=== PATIENT | female | born 1985 | race Caucasian/White ===

== ENCOUNTER → 2019-04-03 11:03 | Outpatient (CLI) | payer OTHER, SELFPAY ==
[2019-04-03 12:28] LABS: Hematocrit 35.4 % (36-46); Hemoglobin 12.4 g/dL (12.0-16.0)
[2019-04-03 14:03] LABS: GTT (PREG) 1 Hour PP 50gm Dose 82 mg/dL (76-139)
== END ==
PROVIDERS: Visit Provider Specialist
DX: Z3A.24 24 weeks gestation of pregnancy (principal); Z34.82 Encounter for supervision of other normal pregnancy, second trimester
CPT/HCPCS: 36415; 82950; 85014; 85018

== ENCOUNTER → 2019-06-21 15:56 | Outpatient (CLI) | payer OTHER, SELFPAY ==
[2019-06-23 13:20] LABS: Strep Grp B PCR NEG for Grp B Strep
== END ==
PROVIDERS: Visit Provider Specialist
DX: Z34.83 Encounter for supervision of other normal pregnancy, third trimester (principal); Z3A.36 36 weeks gestation of pregnancy
CPT/HCPCS: 87653

== ENCOUNTER 2019-07-08 00:03 | Inpatient (IN) | payer OTHER, SELFPAY ==
--- NOTE | 2019-07-08 01:01 | PM.OBHP.1 ---
OB HPI History of Present Condition Chief complaint: Evaluation of Labor Narrative: Savannah Larose is a 34 year old @39+1, presenting from home after SROM for clear fluid at 11:30 PM on 07/07. She reports contractions since that time, increasing in frequency and intensity. She denies VB and reports good movement, with no other complaints. She denies any complications, and reports a history of term CS for failure to progress, followed by failed term TOLAC. She denies any other pregnacy complications or complications in recovery. 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) Migraines (Chronic) Ovarian cyst (Chronic ~2008) with history of section, antepartum (Acute) Surgical History (Updated 04/19/19 @ 22:28 by Maribell Arita) Anesthesia (Resolved) Femoral hernia (Resolved ~2011) H/O section (Resolved ~2011) H/O section (Resolved ~2014) Tumor (Resolved ~2017) Family History (Updated 04/19/19 @ 22:31 by Maribell Arita) Father History of heart disease Hyperlipidemia Hypertension Grandfather History of heart disease Hyperlipidemia Hypertension Grandmother Breast cancer Grandfather History of heart disease Grandmother History of heart disease Family History (Updated 04/19/19 @ 22:31 by Maribell Arita) Father History of heart disease Hyperlipidemia Hypertension Grandfather History of heart disease Hyperlipidemia Hypertension Grandmother Breast cancer Grandfather History of heart disease Grandmother History of heart disease Meds Home Medications and Allergies Home Medications Medication Instructions Recorded Confirmed Type breast pump #1 each 05/18/19 05/18/19 Rx butalbital 50 mg-acetaminophen 325 1 cap PO Q4H PRN #10 cap 05/29/19 Rx mg-caffeine 40 mg-codeine 30 mg cap Allergies Allergy/AdvReac Type Severity Reaction Status Date / Time Sulfa (Sulfonamide Allergy Verified 07/08/19 01:17 Antibiotics) Review of Systems Review of Systems ROS Unobtainable: All systems reviewed & are unremarkable except as noted in HPI and below Constitutional Constitutional: Reports system reviewed and no additional complaints, except as documented Cardiovascular Cardiovascular: Reports system reviewed; no additional complaints, except as documented Respiratory Respiratory: Reports system reviewed and no additional complaints, except as documented Gastrointestinal Gastrointestinal: Reports system reviewed and no additional complaints, except as documented Genitourinary Genitourinary: Reports as per HPI Neurologic Neurologic: Reports system reviewed and no additional complaints, except as documented Exam Vital Signs (past 8 hours): 122/73, 71, 36.2C Objective Labs Labs: CBC pending Assessment and Plan Assessment and Plan Assessment and Plan narrative: This patient presents in early labor with ruptured membranes, at term and with a history of two prior CS. The risks and benefits of repeat section were discussed, including the risks of hemorrhage, hysterectomy, and damage to surrounding organs along with the risk of TOLAC. The patient vocalized understanding and consent was obtained. She will be taken for repeat section. - CBC, T&S pending - For cefazolin, azithryomycin ppx - For vaginal prep as ruptured membranes Time Spent with Patient Total time spent with greater than 50% in coordination of care (as documented) at patient's floor/unit and/or counseling patient:: 15-24 minutes
[2019-07-08 01:08] LABS: Add Manual Diff / Slide Review NO; Basophils Absolute Auto 100 /uL (0-100); Basophils Percent Auto 0.7 % (0-2); Eosinophils Absolute Auto 100 /uL (0-450); Eosinophils Percent Auto 1.4 % (2-4); Hematocrit 35.4 % (36-46); Hemoglobin 12.3 g/dL (12.0-16.0); Lymphocytes Absolute Auto 1600 /uL (1100-4500); Lymphocytes Percent Auto 21.7 % (25-40); Mean Corpuscular HGB Conc 34.6 % (30-36); Mean Corpuscular Hemoglobin 30.6 PG (26-34); Mean Corpuscular Volume 88.2 fL (80-100); Monocytes Absolute Auto 500 /uL (0-900); Monocytes Percent Auto 7.2 % (3-14); Neutrophils Absolute Auto 5200 /uL (1500-7000); Platelet Count 144 X10^3/uL (150-400); Red Blood Cell Count 4.01 X10^6/uL (4.0-5.2); Red Cell Distribution Width 13.4 % (11.6-14.8); White Blood Cell Count 7.6 X10^3/uL (4.5-11.0)
[2019-07-08] MEDS: CEFAZOLIN 2 GM/100 ML FROZ.PIGGY IV (01:32)
--- NOTE | 2019-07-08 01:45 | PM.PREOP ---
Pre-operative Note Interval Note History & Physical reviewed/Exam performed by Physician: Yes Changes to H&P: No
[2019-07-08] MEDS: AZITHROMYCIN 500 MG in DEXTROSE 5% IN WATER 250 ML IV (01:50)
--- NOTE | 2019-07-08 02:14 | SUR.OPER ---
Supine on Padded OR bed, head on pillow, safety belt at thigh, arms secured on padded arm boards at <90 degrees abduction. Bump under right buttock. Legs uncrossed with pillow under knees, gel pad to heels, tape over blanket to lower legs.
--- NOTE | 2019-07-08 02:41 | SUR.OPER ---
VIABLE FEMALE INFANT DELIVERED AT 0214. CORD BLOOD AND PLACENTA TO OB WITH RN.
--- NOTE | 2019-07-08 03:03 | PM.GYNOP.1 ---
Operative Date/Time/Diagnoses Date of procedure: 07/08/19 Time of procedure: 02:00 Pre-op diagnosis: Hx 2x prior CS, ruptured membranes, early labor Post-op diagnosis: same Procedure & Clinicians Procedure: Procedures Operation Date: 07/08/19 02:05 Actual Procedures Side Surgeon Section Not Applicable Belkis Camacho MD Findings: Female infant in cephalic presentation, apgars 9+9. Normal uterus, tubes and ovaries. Minimal scar tissue. Procedure: The patient was taken to the operating room where spinal anesthesia and a enrique catheter were placed. She was prepped and draped in the normal sterile fashion in the dorsal supine position with a leftward tilt. A Pfannenstiel skin incision was made with the scalpel, and the prior incision scar excised. This incision was carried through to the underlying layer of fascia with the bovie. The fascia was incised in the midline and this incision extended laterally with the bovie. Dylan clamps were used to grasp and elevate the superior aspect of this incision, and a scalpel was used to dissect off the underlying rectus muscles. Attention was then turned to the inferior aspect of this incision, which in a similar fashion was grasped with the dylan clamps, elevated, and the underlying rectus muscles dissected off with the scalpel. The muscles were noted to be in the midline, and the peritoneum was entered bluntly with good visualization of the bladder. The bladder blade was placed, and the vesicouterine peritoneum visualized, grasped with a pickups and entered sharply with the metzenbaum scissors. This incision was extended laterally and the bladder flap created digitally. The bladder blade was reinserted. The lower uterine segment was incised in a transverse fashion with the scalpel, and this incision was extended bluntly. The infant was delivered atraumatically from the cephalic presentation, and the cord was clamped and cut. The was handed to awaiting nursery staff, and the placenta was removed manually with a three vessel cord noted. The uterus was cleared of all clots and debris, and 1-0 chromic was used in a running locked fashion to repair the hysterotomy. A second layer of the same suture was used to achieve a double layer closure with good hemostasis achieved. The gutters were cleared of all clots, and the peritoneum closed with 2-0 vicryl in a running fashion. The fascia was closed in a running fashion with 0 vicryl. 3-0 vicryl was used in an interrupted fashion to close the subcutaneous layer, and 4-0 biosyn was used to close the skin in a running fashion. Sponge, lap and instrument counts were correct x2, and the patient tolerated the procedure well. She was taken to PACU in stable condition. Complications: None IVF: 2000ccs UOP: 300ccs EBL: 400ccs Indications: 2x prior CS, ruptured membranes at term Surgeon: Belkis Camacho Vp [employer]: Mariela Thomas Anesthesia Type: Spinal
[2019-07-08 03:05] VITALS: BP 107/71; PULSE 54; RESP 12; TEMP 36.1; O2SAT 99
[2019-07-08 03:10] VITALS: BP 106/70; PULSE 58; RESP 12; O2SAT 98
[2019-07-08 03:15] VITALS: BP 111/61; PULSE 56; RESP 11; O2SAT 98
[2019-07-08 03:20] VITALS: BP 114/66; PULSE 53; RESP 12; TEMP 36.1; O2SAT 99
[2019-07-08] MEDS: LACTATED RINGERS 1,000 ML 100 ML IV (03:30)
[2019-07-08 03:53] VITALS: BP 110/68
[2019-07-08] MEDS: KETOROLAC 30 MG/ML VIAL IV ×3 (08:30→20:35)
[2019-07-08] MEDS: DOCUSATE 250 MG CAPSULE PO (09:30)
[2019-07-08] MEDS: PRENATAL VIT,CALC/IRON/FOLIC 1 TABLET 1 TAB PO (09:30)
--- NOTE | 2019-07-08 10:09 | PM.OBPN.1 ---
Subjective - OB Subjective Patient comments: no complaints, pain well controlled and tolerating diet baby status: doing well and nursing well feeding status: exclusively breast feeding Narrative: Patient reports feeling well this AM with no complaints. Date Patient Seen: 07/08/19 Time Patient Seen: 10:09 Interval history: Patient now PPD#0 s/p 3rd section after presenting at term with ruptured membranes and dayanara. Exam Vital Signs (past 8 hours): - 07/08/19 03:05 07/08/19 03:10 07/08/19 03:15 Temperature 97.0 F L Pulse Rate 54 L 58 L 56 L Respiratory Rate 12 12 11 L Blood Pressure 107/71 106/70 111/61 Pulse Oximetry 99 98 98 07/08/19 03:20 07/08/19 03:53 Temperature 97.0 F L Pulse Rate 53 L Respiratory Rate 12 Blood Pressure 114/66 110/68 Pulse Oximetry 99 Oxygen Delivery Method Room Air Narrative Exam Narrative: Patient well appearing, nursing . Resp Auscultation: clear to auscultation bilaterally Cardio Rate: regular rate Rhythm: regular rhythm GI Inspection: normal to inspection and incision (incision covered by dressing, scant old blood visible. ) Palpation: soft and No tender Skin General: no rashes or lesions noted and No pallor Objective Labs Result Diagrams: 07/08/19 01:00 Labs: Laboratory Results - last 24 hr 07/08/19 07/08/19 01:00 01:00 WBC 7.6 RBC 4.01 Hgb 12.3 Hct 35.4 L MCV 88.2 MCH 30.6 MCHC 34.6 RDW 13.4 Plt Count 144 L Neut % (Auto) 69.0 Lymph % (Auto) 21.7 L [place] % (Auto) 7.2 Eos % (Auto) 1.4 L Baso % (Auto) 0.7 Neut # (Auto) 5200 Lymph # (Auto) 1600 [place] # (Auto) 500 Eos # (Auto) 100 Baso # (Auto) 100 Blood Type A Positive Antibody Screen Negative Assessment & Plan Plan day: 0 plan OB: routine postop care Comments: Regular diet Ambulation ad flavia Campos out this PM or tomorrow AM CBC in AM Routine pp care Time Spent With Patient Time: Total time spent is greater than 50% in coordination of care (as documented) at patient's floor/unit and/or counseling patient: Time with patient: less than 15 minutes
[2019-07-09] MEDS: IBUPROFEN 600 MG TABLET PO ×2 (02:45→08:51)
[2019-07-09 05:48] LABS: Add Manual Diff / Slide Review NO; Basophils Absolute Auto 0 /uL (0-100); Basophils Percent Auto 0.4 % (0-2); Eosinophils Absolute Auto 100 /uL (0-450); Eosinophils Percent Auto 1.4 % (2-4); Hematocrit 28.6 % (36-46); Hemoglobin 10.2 g/dL (12.0-16.0); Lymphocytes Absolute Auto 1200 /uL (1100-4500); Lymphocytes Percent Auto 13.4 % (25-40); Mean Corpuscular HGB Conc 35.8 % (30-36); Mean Corpuscular Volume 86.7 fL (80-100); Monocytes Absolute Auto 400 /uL (0-900); Monocytes Percent Auto 4.6 % (3-14); Neutrophils Absolute Auto 7500 /uL (1500-7000); Neutrophils Percent Auto 80.2 % (50-75); Platelet Count 142 X10^3/uL (150-400); Red Cell Distribution Width 13.7 % (11.6-14.8); White Blood Cell Count 9.3 X10^3/uL (4.5-11.0)
[2019-07-09] MEDS: OXYCODONE IR 5 MG TABLET PO ×2 (06:38→11:01)
[2019-07-09] MEDS: ACETAMINOPHEN 325 MG TABLET 650 MG PO (06:39)
[2019-07-09] MEDS: PRENATAL VIT,CALC/IRON/FOLIC 1 TABLET 1 TAB PO (08:50)
[2019-07-09] MEDS: DOCUSATE 250 MG CAPSULE PO (08:51)
[2019-07-09 11:02] VITALS: BP 110/68; PULSE 53; RESP 12; TEMP 36.1
--- NOTE | 2019-07-09 12:35 | P.PNOB_ITS ---
Subjective - OB Subjective Patient comments: no complaints, pain well controlled, tolerating diet and flatus present baby status: doing well Narrative: Patient reports feeling well, strongly desires discharge. Reports mild [place] c/w history of chronic headaches, but no visual changes, chest pain, epigastric pain, increased swelling, or any other complaints. Otherwise recovering well postoperatively, meeting all postoperative goals. Date Patient Seen: 07/09/19 Time Patient Seen: 12:36 Exam Vital Signs (past 8 hours): 108-116/68-76, HR 60s-70s Oxygen Delivery Method Room Air Narrative Exam Narrative: Resting in bed, well appearing and surrounded by family. Const General: healthy appearing and comfortable Orientation: alert, awake and oriented x3 Resp Effort & Inspection: normal respiratory effort Cardio Rate: regular rate Rhythm: regular rhythm GI Inspection: normal to inspection Other: Fundus firm, well below u. No distention. Incision c/d/i, covered by aquacel bandage. Extrem General: normal to inspection, no pedal edema and no calf tenderness Right lower extremity: normal to inspection Left lower extremity: normal to inspection Objective Labs Result Diagrams: 07/09/19 05:35 Labs: Laboratory Results - last 24 hr 07/09/19 05:35 WBC 9.3 RBC 3.30 L Hgb 10.2 L Hct 28.6 L MCV 86.7 MCH 31.0 MCHC 35.8 RDW 13.7 Plt Count 142 L Neut % (Auto) 80.2 H Lymph % (Auto) 13.4 L [place] % (Auto) 4.6 Eos % (Auto) 1.4 L Baso % (Auto) 0.4 Neut # (Auto) 7500 H Lymph # (Auto) 1200 [place] # (Auto) 400 Eos # (Auto) 100 Baso # (Auto) 0 Assessment & Plan Plan day: 1 plan OB: routine postop care and discharge home Comments: Patient POD#1 s/p delivery early AM on 07/08, recovering well and meeting postoperative goals appropriately. Patient stable for and strongly desires discharge. Discussed precautions and follow up, including PIH precautions given [place]. - Patient for f/u appt in one week for dressing removal and incision check - Patient instructed to call answering service/clinic or come to ED with any concerning symptoms Time Spent With Patient Time: Total time spent is greater than 50% in coordination of care (as documented) at patient's floor/unit and/or counseling patient: Time with patient: less than 15 minutes
--- NOTE | 2019-07-09 13:03 | P.DS_ITS ---
Discharge Providers Provider Date of admission: 07/08/19 00:03 Discharge Date: 07/09/19 Primary care physician: Dulce Ray MD Consults: 07/08/19 03:51 Consult to [employer] Routine Comment: Discharge provider: Belkis Camacho MD Summary Discharge Diagnosis (1) with history of section, antepartum: Status: Resolved Problem Details: Patient admitted after SROM at home, grossly ruptured and dayanara on admission. Patient taken for third section without complication. (2) Previous section: Status: Acute Problem Details: Patient recovered postoperatively without complication, meeting postoperative goals. Patient discharged with precautions for routine follow up. Time Spent with Patient Time attestation: Total time spent providing and/or coordinating discharge services: 30 minutes Objective Labs Result Diagrams: 07/09/19 05:35 Labs: Laboratory Results - last 24 hr 07/09/19 05:35 WBC 9.3 RBC 3.30 L Hgb 10.2 L Hct 28.6 L MCV 86.7 MCH 31.0 MCHC 35.8 RDW 13.7 Plt Count 142 L Neut % (Auto) 80.2 H Lymph % (Auto) 13.4 L [place] % (Auto) 4.6 Eos % (Auto) 1.4 L Baso % (Auto) 0.4 Neut # (Auto) 7500 H Lymph # (Auto) 1200 [place] # (Auto) 400 Eos # (Auto) 100 Baso # (Auto) 0 Exam Vital Signs (past 8 hours): - 07/09/19 11:02 Temperature 97.0 F L Pulse Rate 53 L Respiratory Rate 12 Blood Pressure 110/68 Oxygen Delivery Method Room Air Const General: cooperative, healthy appearing and comfortable Resp Effort & Inspection: normal respiratory effort Auscultation: clear to auscultation bilaterally Cardio Rate: regular rate Rhythm: regular rhythm GI Inspection: normal to inspection Other: incision c/d/i, covered by bandage. Fundus firm, below u. Discharge Plan Discharge Plan Patient Disposition: Home Discharge comment: Patient discharged on POD#1 (early AM delivery on POD#0) after repeat section. CS performed due to SROM and early labor at term with hx 2x prior CS. Discharge Med Rec/Prescriptions Prescriptions: New docusate sodium 250 mg Capsule 250 mg PO DAILY Qty: 60 RF: 0 oxycodone 5 mg Tablet 5 mg PO Q4HR PRN (Reason: Pain, Moderate (4-6)) Qty: 10 RF: 0 Continued [id number] [id number] mg capsule 1 cap PO Q4H PRN (Reason: headache) Qty: 10 RF: 0 (DME) breast pump [Pump In Style Advanced] device See Dose Instructions [id number] .MEDSUPPLY Qty: 1 RF: 0 Follow up/Referrals: Dulce Ray MD [Primary Care Provider] - 1 Week (Postop/incision check) Provider Discharge Instructions Diet: Regular Activity: Ambulation encouraged, stairs ok. Avoid lifting more than 10 lbs until cleared by Dr. Ray. Nothing in the vagina for 6 weeks. Other treatments: If you develop worsening headaches, visual changes, increasing swelling, pain, fevers, chills, increasing vaginal discharge or bleeding, or any other concerning symptoms, call or come to the Emergency Room. Skin/Wound/Dressing Care Report to your healthcare provider any signs of infection, such as:: chills, fever, increased pain, unusual drainage and unusual redness Dressing: To be removed at postop appointment Discharge Data Primary Care Provider: Dulce Ray
== END 2019-07-09 14:25 | disposition home or self-care (01) | DRG 788 ==
PROVIDERS: Obstetrics & Gynecology; Admitting Provider Obstetrics & Gynecology; PCP Specialist; Visit Provider Obstetrics & Gynecology
PROC: (CPT 59514; principal; 2019-07-08 02:05)
DX: O34.219 Maternal care for unspecified type scar from previous cesarean delivery (principal); Z3A.39 39 weeks gestation of pregnancy; Z37.0 Single live birth
CPT/HCPCS: 36415; 59050; 59514; 59515; 85025; 86850; 86900; 86901; G0379; J0690; J1885

== ENCOUNTER → 2021-04-16 13:58 | Outpatient (CLI) | payer OTHER, SELFPAY ==
[2021-04-16 16:38] LABS: Vitamin D 25 Hydroxy (D3) 44.2 ng/mL (30.0-100.0)
== END ==
PROVIDERS: PCP Family Medicine; Referring Provider Family Medicine; Visit Provider Family Medicine
DX: Z13.21 Encounter for screening for nutritional disorder (principal)
CPT/HCPCS: 36415; 82306

== ENCOUNTER 2021-04-19 22:40 | Emergency (ER) | payer OTHER, SELFPAY ==
[2021-04-19 23:10] LABS: RBC Urine 0-1/HPF (0-5/HPF); Squamous Epithelial Cell Urine 0-1 /HPF (0-5/HPF)
[2021-04-19 23:11] LABS: Bacteria Urine Few (2-10); Culture Indicated Urine Specimen Cultured; WBC Urine 5-10/HPF (0-5/HPF)
[2021-04-19 23:14] VITALS: BP 136/81; PULSE 57; RESP 15; TEMP 36.6; O2SAT 99; BMI 19.9
--- NOTE | 2021-04-19 23:27 | ED.GENADULT ---
HPI - General Adult General Chief complaint: Urogenital-Female Stated complaint: UTI Time Seen by Provider: 04/19/21 23:13 Source: patient Mode of arrival: Ambulatory Limitations: no limitations History of Present Illness HPI narrative: Patient is a 36-year-old female here for evaluation of approximately 24 hours of dysuria and frequency. No fevers. No back pain. Has had a urinary tract infection in the past but that was many years ago. Related Data Previous Rx's Medication Instructions Recorded breast pump (Pump In Style #1 each 05/18/19 Advanced) Triple Nipple Ointment See Rx Instructions .ROUTE 05/27/20 .COMPLEX #30 gram sumatriptan succinate 50 mg tablet See Rx Instructions PO .COMPLEX 02/27/21 #10 tab fluconazole 100 mg tablet 100 mg PO DAILY #2 tab 04/19/21 (Diflucan) nitrofurantoin 100 mg PO Q12H 5 Days #10 cap 04/19/21 monohydrate/macrocrystals 100 mg capsule (Macrobid) phenazopyridine 100 mg tablet 100 mg PO TID PRN #6 tab 04/19/21 (Pyridium) Allergies Allergy/AdvReac Type Severity Reaction Status Date / Time Sulfa (Sulfonamide Allergy Verified 04/16/21 13:46 Antibiotics) Review of Systems Constitutional Constitutional: Denies fever(s) Gastrointestinal Gastrointestinal: Denies abdominal pain Genitourinary Genitourinary: Reports dysuria, Reports urinary hesitancy and Reports urinary urgency Musculoskeletal Musculoskeletal: Denies back pain Patient History Medical History Benign neoplasm of salivary gland Cervical somatic dysfunction Cranial somatic dysfunction Ductal candidiasis of breast History of melanoma Melanoma in situ (~2010) Migraines Neck stiffness Ovarian cyst (~2008) Paresthesia with history of section, antepartum Thoracic region somatic dysfunction Surgical History Anesthesia Femoral hernia (~2011) H/O section (~2011) H/O section (~2014) Previous section (~2018) Tumor (~2017) Family History (Updated 06/12/20 @ 16:58 by Vitaly Barfield DO) Father History of heart disease Hyperlipidemia Hypertension Grandfather History of heart disease Hyperlipidemia Hypertension Grandmother Breast cancer Grandfather History of heart disease Hyperlipidemia Hypertension Grandmother History of heart disease Mother No problems noted. Social History Smoking Status: Never smoker alcohol intake: current substance use type: does not use Smoking Status: Never smoker alcohol intake frequency: 0-2 drinks per day Substance Use Type: does not use Exam Initial Vital Signs Initial Vital Signs: Vital Signs Temperature 98 F 04/19/21 23:14 Pulse Rate 57 L 04/19/21 23:14 Respiratory Rate 15 04/19/21 23:14 Blood Pressure 136/81 04/19/21 23:14 Pulse Oximetry 99 04/19/21 23:14 HENMT Head: normal to inspection and normocephalic Resp Effort & Inspection: normal respiratory effort Cardio Rate: regular rate Neuro General: patient alert, patient awake and patient oriented x3 Extrem General: normal to inspection Course Orders Ordered: ED Orders 04/19/21 22:59 Urine Culture Stat Urine Microscopic Stat Discontinued Medications Nitrofurantoin Macrocrystals (Nitrofurantoin Er 100 Mg Capsule) 100 mg PO NOW ONE Stop: 04/19/21 23:28 Last Admin: 04/19/21 23:39 Dose: 100 mg Documented by: HERMELINDO Phenazopyridine HCl (Phenazopyridine 100 Mg Tablet) 100 mg PO NOW ONE Stop: 04/19/21 23:28 Last Admin: 04/19/21 23:39 Dose: 100 mg Documented by: HERMELINDO Vital Signs Vital signs: Vital Signs - 8 hr 04/19/21 23:14 04/19/21 23:42 Temperature 98 F Pulse Rate 57 L 68 Respiratory Rate 15 Blood Pressure 136/81 125/80 Pulse Oximetry 99 99 Medical Decision Making Lab Data Labs: Lab Results 04/19/21 Range/Units 22:59 Urine RBC 0-1/hpf (0-5/HPF) Urine WBC 5-10/hpf H (0-5/HPF) Ur Squamous Epith Cells 0-1 /hpf (0-5/HPF) Urine Bacteria Few (2-10) H (None) Ur Culture Indicated? Specimen cultured Point of Care Testing Test Results Negative Urine Dip Bedside Urine Glucose Negative Bedside Urine Bilirubin - Negative Bedside Urine Ketone - Negative Urine Specific [place] 1.010 Bedside Urine Occult Blood ++ Bedside Urine pH 6 Bedside Urine Protein - Negative Bedside Urine Urobilinogen - Negative Bedside Urine Nitrite - Negative Bedside Urine Leukocytes - Negative Esterase Point of care testing: Point of Care Testing Test Results Negative Urine Dip Bedside Urine Glucose Negative Bedside Urine Bilirubin - Negative Bedside Urine Ketone - Negative Urine Specific [place] 1.010 Bedside Urine Occult Blood ++ Bedside Urine pH 6 Bedside Urine Protein - Negative Bedside Urine Urobilinogen - Negative Bedside Urine Nitrite - Negative Bedside Urine Leukocytes - Negative Esterase MDM Narrative Medical decision making narrative: History and physical urinalysis is consistent with a urinary tract infection. Low suspicion for pyelonephritis. First dose of antibiotics given here in the emergency department. A culture was pending at the time of discharge she was informed of this and we will contact her if need to change any antibiotics. Prescription was sent to the pharmacy of her choice. She was given return precautions and follow-up instructions. She expressed understanding and agreement. Discharge Plan Departure Patient Disposition: Home Clinical Impression: UTI (urinary tract infection) Instructions: DI for Urinary Tract Infection (UTI) Activity Restrictions/Additional Instructions: Start taking the antibiotics as directed. You were also given a prescription for Pyridium. This medication is to help the symptoms. You can stop taking it once your symptoms are better. You were also given a prescription for Diflucan. Take this as needed as well. Return to the emergency department for any new or worsening symptoms Prescriptions: New nitrofurantoin monohyd/m-cryst [Macrobid] 100 mg capsule 100 mg PO Q12H 5 Days Qty: 10 RF: 0 phenazopyridine [Pyridium] 100 mg tablet 100 mg PO TID PRN (Reason: pain) Qty: 6 RF: 0 fluconazole [Diflucan] 100 mg tablet 100 mg PO DAILY Qty: 2 RF: 0 No Action Triple Nipple Ointment See Rx Instructions .ROUTE .COMPLEX Qty: 30 RF: 0 (DME) breast pump [Pump In Style Advanced] device See Dose Instructions [id number] .MEDSUPPLY Qty: 1 RF: 0 sumatriptan succinate 50 mg tablet See Rx Instructions PO .COMPLEX Qty: 10 RF: 5 Referrals: Vitaly Barfield DO [Primary Care Provider] -
[2021-04-19] MEDS: PHENAZOPYRIDINE 100 MG TABLET PO (23:39)
[2021-04-19] MEDS: NITROFURANTOIN ER 100 MG CAPSULE PO (23:39)
[2021-04-19 23:42] VITALS: BP 125/80; PULSE 68; O2SAT 99
== END 2021-04-19 23:43 | disposition home or self-care (01) ==
PROVIDERS: Emergency Provider Emergency Medicine; PCP Family Medicine
DX: N39.0 Urinary tract infection, site not specified (principal)
CPT/HCPCS: 81003; 81015; 81025; 87077; 87086; 87186; 99283

== ENCOUNTER → 2023-10-13 16:56 | Outpatient (CLI) | payer OTHER, SELFPAY ==
--- NOTE | 2023-10-13 16:58 | DI.MRI.S_ITS ---
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 After the administration of contrast, axial and sagittal T1 spin echo with fat saturation through the cervical spine. COMPARISON: None. FINDINGS: Image quality: This examination is limited by involuntary motion artifact. Alignment and curvature: There is normal bony alignment. Marrow: Marrow is normal in overall signal, without suspicious enhancement. Spinal cord: Visualized spinal cord has normal size and signal. No cerebellar tonsillar herniation. No abnormal intramedullary enhancement. Paraspinous soft tissues: No paravertebral masses or suspicious enhancement. C2-3: Normal appearance. C3-4: No significant abnormality is seen. C4-5: Mild loss of disc height is seen. Loss of disc signal is seen. A mild degree of generalized disc osteophyte complex is seen. Mild facet joint hypertrophy is seen. There is moderate left-sided and no significant right-sided neural foraminal narrowing. No significant central canal narrowing is seen. C5-6: Level within normal limits. C6-7: No significant abnormality is seen. C7-T1: Normal appearance. IMPRESSION: Cervical spine MRI within normal limits. No masses or abnormal enhancement can be seen. Dictated by: Frederick Castillo M.D. on 10/13/2023 at 16:54 Approved by: Frederick Castillo M.D. on 10/13/2023 at 16:58
== END ==
PROVIDERS: PCP Family Medicine; Referring Provider Family Medicine; Visit Provider Family Medicine
DX: G54.5 Neuralgic amyotrophy (principal)
CPT/HCPCS: 72156; A9579

== ENCOUNTER → 2023-11-08 13:23 | Outpatient (CLI) | payer OTHER, SELFPAY ==
[2023-11-08 14:13] LABS: Add Manual Diff / Slide Review NO; Basophils Absolute Auto 100 /uL (0-100); Basophils Percent Auto 0.8 % (0-2); Eosinophils Absolute Auto 200 /uL (0-450); Eosinophils Percent Auto 2.5 % (2-4); Hematocrit 41.7 % (36-46); Hemoglobin 14.3 g/dL (12.0-16.0); Lymphocytes Absolute Auto 2000 /uL (1100-4500); Lymphocytes Percent Auto 31.6 % (25-40); Mean Corpuscular HGB Conc 34.3 % (30-36); Mean Corpuscular Hemoglobin 29.7 PG (26-34); Mean Corpuscular Volume 86.7 fL (80-100); Monocytes Absolute Auto 400 /uL (0-900); Monocytes Percent Auto 5.7 % (3-14); Neutrophils Absolute Auto 3800 /uL (1500-7000); Neutrophils Percent Auto 59.4 % (50-75); Platelet Count 248 X10^3/uL (150-400); Red Blood Cell Count 4.81 X10^6/uL (4.0-5.2); Red Cell Distribution Width 12.7 % (11.6-14.8); White Blood Cell Count 6.4 X10^3/uL (4.5-11.0)
[2023-11-08 14:22] LABS: Hemoglobin A1C% w Est Avg Glu 4.7 % (4.0-6.0)
[2023-11-08 14:31] LABS: Erythrocyte Sedimentation Rate 2 MM/HR (0-20)
[2023-11-08 15:03] LABS: TSH w/ Reflex to FT4 2.02 uIU/mL (0.47-4.68)
[2023-11-15 13:24] LABS: 18 kD IgG Band Absent (.); 23 kD IgG Band Absent (.); 28 kD IgG Band Absent (.); 30 kD IgG Band Absent (.); 39 kD IgG Band Absent (.); 41 kD IgG Bands Absent (.); 45 kD IgG Band Absent (.); 58 kD IgG Band Absent (.); 66 kD IgG Band Absent (.); IgG P93 AB Absent (.); IgM P23 AB Absent (.); IgM P39 AB Absent (.); IgM P41 AB Absent (.); Lyme IgG Line Blot Interpretat Negative (.); Lyme IgM Line Blot Interpretat Negative (.)
== END ==
PROVIDERS: PCP Family Medicine; Referring Provider Family Medicine; Visit Provider Family Medicine
DX: G54.5 Neuralgic amyotrophy (principal)
CPT/HCPCS: 36415; 83036; 84443; 85025; 85651; 86617

== ENCOUNTER → 2023-11-18 10:21 | Outpatient (CLI) | payer OTHER, SELFPAY ==
--- NOTE | 2023-11-18 10:24 | DI.US.S_ITS ---
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 COMPARISON: None. FINDINGS: The right submandibular gland is surgically absent. Hypoechoic structures with hilar blood flow within the parotid glands, measuring no greater than 5 millimeters. IMPRESSION: Right submandibular resection without evidence of local recurrence. Presumed intraparotid lymph nodes. Dictated by: Jose Haider M.D. on 11/18/2023 at 13:49 Approved by: Jose Haider M.D. on 11/18/2023 at 13:50
== END ==
LOC: US 10:22
PROVIDERS: PCP Family Medicine; Referring Provider Family Medicine; Visit Provider Family Medicine
DX: G54.5 Neuralgic amyotrophy (principal); Z86.018 Personal history of other benign neoplasm
CPT/HCPCS: 76536

== ENCOUNTER → 2024-06-21 | Outpatient (CLI) | payer OTHER, SELFPAY ==
--- NOTE | 2024-06-21 09:19 | DI.MG.S_ITS ---
BILATERAL DIGITAL SCREENING MAMMOGRAM 3D/2D WITH CAD: 06/21/2024 CLINICAL: Routine screening. Family history of breast cancer. No prior exams were available for comparison. The breasts are heterogeneously dense, which may obscure small masses (category c / 51-75% glandular tissue). Current study was also evaluated with a Computer Aided Detection (CAD) system. No significant masses, calcifications, or other findings are seen in either breast. IMPRESSION: NEGATIVE There is no mammographic evidence of malignancy. A 1 year screening mammogram is recommended. Based on the Tyrer Cuzick model (a risk assessment model) the patient's lifetime risk is 19.5% and her 10 year risk is 2.8%. According to the ACR, ACS, and NCCN guidelines, an annual breast MRI exam along with mammogram is recommended if the patient's lifetime risk is 20% or greater. This exam was interpreted at Station ID: [id number]. NOTE: For mammograms, a report in lay terms will be sent to the patient. Approximately 15% of breast malignancies will not be visualized mammographically. In the management of a palpable breast mass, a negative mammogram must not discourage biopsy of a clinically suspicious lesion. Electronically Signed By: Michael carson/[email or web address]:07/04/2024 11:39:40 letter sent: Normal Exam ACR BI-RADS Category 1: Negative
== END ==
LOC: MAMMO 09:19
PROVIDERS: PCP Family Medicine; Referring Provider Family Medicine; Visit Provider Family Medicine
DX: Z12.31 Encounter for screening mammogram for malignant neoplasm of breast (principal); Z80.3 Family history of malignant neoplasm of breast; R92.333 Mammographic heterogeneous density, bilateral breasts
CPT/HCPCS: 77063; 77067

== ENCOUNTER → 2025-05-21 14:19 | Outpatient (CLI) | payer OTHER, SELFPAY | PROVIDERS: PCP Family Medicine; Visit Provider Nurse Practitioner Family | DX: J34.89 Other specified disorders of nose and nasal sinuses (principal) | CPT/HCPCS: 87070; 87075; 87077; 87147; 87186; 87205 ==

== ENCOUNTER → 2025-06-22 09:18 | Outpatient (CLI) | payer OTHER, SELFPAY ==
--- NOTE | 2025-06-22 09:18 | DI.MG.S_ITS ---
MM screening mammo BI: 06/22/2025. BI-RADS: 1 CLINICAL: 40-year old female for bilateral screening mammogram. Tyrer-Cuzick lifetime risk of 16.1%. No personal or first-degree family history of breast cancer. Current reported family history of breast cancer: maternal grandmother. PRIOR EXAMS 06/21/2024. MAMMOGRAPHY TECHNIQUE: 2D and 3D (tomosynthesis) digital mammographic views obtained, with additional images as needed for full coverage. Current study was also evaluated with a Computer Aided Detection (CAD) system. DENSITY C. The breasts are heterogeneously dense, which may obscure small masses. MAMMOGRAPHY FINDINGS Bilateral: No suspicious mass, asymmetry, microcalcification, or other abnormality seen. IMPRESSION: * No evidence of malignancy. RECOMMENDATIONS Bilateral * Annual screening mammography. OVERALL ASSESSMENT CATEGORY BI-RADS-1: Negative. The [employer] recommends annual screening mammography beginning at age 40 for women with average risk of breast cancer. ELECTRONICALLY SIGNED: Marianne Mcgee M.D. on 06/23/2025 at 12:21:16 AM PT Interpreting Station ID: [id number]
== END ==
LOC: MAMMO 09:18
PROVIDERS: PCP Family Medicine; Referring Provider Family Medicine; Visit Provider Family Medicine
DX: Z12.31 Encounter for screening mammogram for malignant neoplasm of breast (principal); R92.333 Mammographic heterogeneous density, bilateral breasts; Z80.3 Family history of malignant neoplasm of breast
CPT/HCPCS: 77063; 77067

== ENCOUNTER → 2025-07-26 10:27 | Outpatient (CLI) | payer OTHER, SELFPAY ==
[2025-07-26 11:21] LABS: Cholesterol 179 mg/dL (140-199); HDL Cholesterol 70 mg/dL (40-60); Triglycerides 98 mg/dL (35-150)
== END ==
PROVIDERS: PCP Family Medicine; Referring Provider Family Medicine; Visit Provider Family Medicine
DX: Z13.220 Encounter for screening for lipoid disorders (principal)
CPT/HCPCS: 36415; 80061